=== PATIENT | male | born 1995 | race Caucasian/White ===

== ENCOUNTER 2017-03-12 07:25 | Outpatient (CLI) | payer OTHER ==
--- NOTE | 2017-03-12 10:01 | Ultrasound Report ---
SCROTAL ULTRASOUND: 03/12/2017 CLINICAL HISTORY: Right inguinal pain and bulge. COMPARISON: None. TECHNIQUE: Real-time sonographic vascular imaging was performed by the transport pilot through the scrotu m utilizing both color-flow and Doppler spectral analysis. Multiple renewals representative static images wer e saved for review. FINDINGS: RIGHT TESTICLE: 4.5 x 2.2 x 3.1 cm. Normal echotexture and blood flow. No hydrocele or varicocele. RIGHT EPIDIDYMIS: 1.2 x 1.1 x 1.3 cm. Normal echotexture and blood flow. LEFT TESTICLE: 4.4 x 1.9 x 2.9 cm. Normal echotexture and blood flow. No hydrocele or varicocele. LEFT EPIDIDYMIS: 1 x 0.9 x 1.1 cm. Normal echotexture and blood flow. HERNIA: None seen on either side. IMPRESSION: NEGATIVE SCROTAL ULTRASOUND. JOB #: [id number] EXT JOB #:[id number]
== END 2017-03-12 07:26 | disposition home or self-care (01) ==
LOC: DI 07:25
PROVIDERS: ATTEND Family Medicine
DX: R10.31 Right lower quadrant pain (principal)
CPT/HCPCS: 76870

== ENCOUNTER 2017-07-30 16:36 | Emergency (ER) | payer OTHER ==
[2017-07-30 16:48] VITALS: BP 138/69
--- NOTE | 2017-07-30 16:59 | ED Physician Documentation ---
PD HPI LOWER EXT INJURY - Stated complaint Stated Complaint: L KNEE PAIN - Chief complaint Chief Complaint: Ext Problem - History obtained from History obtained from: Patient - History of Present Illness PD HPI LOW EXT INJURY LOCATION: Left, Knee Type of injury: Blunt / blow Where injury occurred: Other (gym) Timing - onset: Today Timing - duration: Minutes Timing - details: Abrupt onset, Still present Improved by: Rest, Immobilization Worsened by: Moving, Palpating Associated symptoms: Swelling. No: Weakness, Numbness, Tingling Contributing factors: No: Anticoagulated Similar symptoms before: Has not had sx before Recently seen: Not recently seen - Additional information Additional information: 21-year-old male was playing basketball when he planted his left leg another player ran into it from the left side and hit his knee laterally with the knee of the other player. The patient's complaints of pain directly where the knee was hit and he feels that his knee is unstable when he goes to walk on it. Review of Systems Constitutional: denies: Fever Eyes: denies: Decreased vision Ears: denies: Ear pain Nose: denies: Congestion Throat: denies: Sore throat Cardiac: denies: Chest pain / pressure Respiratory: denies: Dyspnea, Cough GI: denies: Nausea, Vomiting Skin: denies: Rash Musculoskeletal: reports: Extremity pain, Joint pain, Joint swelling, Pain with weight bearing. denies: Neck pain, Back pain Neurologic: denies: Generalized weakness, Focal weakness, Numbness PD PAST MEDICAL HISTORY - Past Medical History Past Medical History: No - Past Surgical History Past Surgical History: No - Present Medications Home Medications: Ambulatory Orders Medication Instructions Recorded Confirmed No Known Home Medications [No 07/30/17 07/30/17 Known Home Medications] - Allergies Allergies/Adverse Reactions: Allergies Allergy/AdvReac Type Severity Reaction Status Date / Time No Known Drug Allergies Allergy Verified 07/30/17 16:47 - Social History Does the pt smoke?: No Smoking Status: Never smoker Does the pt drink ETOH?: No Does the pt have substance abuse?: No PD ED PE NORMAL - Vitals Vital signs reviewed: Yes (hypertensive ) - General General: Alert and oriented X 3, No acute distress, Well developed/nourished - HEENT HEENT: Atraumatic, PERRL, EOMI - Respiratory Respiratory: No respiratory distress - Derm Derm: Normal color, Warm and dry, No rash - Extremities Extremities: No deformity, Other (There is swelling consistent with a joint effusion. There is no tenderness to the patella but there is tenderness along the lateral joint line. The ligaments are stable to testing with the exception of the anterior drawer which has some movement when compared to the other side. Distal n/v is intact. ) - Neuro Neuro: No motor deficit, No sensory deficit Eye Opening: Spontaneous Motor: Obeys Commands Verbal: Oriented GCS Score: 15 - Psych Psych: Normal mood, Normal affect Results - Vitals Vitals: Oxygen O2 Source Room air - Rads (name of study) left knee Radiology: Prelim report reviewed (Impression: Normal knee radiography.), EMP read indepedently, See rad report Procedures - Splint (location) left knee Splint applied by: Tech Type of splint: Other (long leg knee immobilizer) Other: Patient tolerated well, No complications, Neurovascular intact, Good alignment PD MEDICAL DECISION MAKING - ED course Complexity details: reviewed results, re-evaluated patient, considered differential, d/w patient ED course: 21-year-old male playing basketball today has had a lateral contusion to the knee he does appear to have intact medial collateral ligament has some play to the anterior cruciate ligament and he does have a feeling of instability. He is placed into a knee immobilizer and he will need reexamination in the following week. He is particularly interested in the definitive prognosis of his injury as he is planning to join the [employer]. Departure - Departure Disposition: 01 Home, Self Care Clinical Impression: Left knee sprain Qualifiers: Encounter type: initial encounter Involved ligament of knee: anterior cruciate ligament Qualified Code(s): S83.512A - Sprain of anterior cruciate ligament of left knee, initial encounter Instructions: ED Sprain Knee Follow-Up: Bennie Chamberlain DO [Primary Care Provider] - [facility] [Provider Group] Discharge Date/Time: 07/30/17 17:39
--- NOTE | 2017-07-30 17:52 | XRAY Report ---
EXAM: LEFT KNEE RADIOGRAPHY EXAM DATE: 07/30/2017 05:30 PM. CLINICAL HISTORY: Lateral contusion pain. COMPARISON: None. TECHNIQUE: 4 views, including oblique views. FINDINGS: Bones: Normal. No fractures or bone lesions. Joints: Normal. No effusion. No subluxations. Soft Tissues: Unremarkable. IMPRESSION: Normal knee radiography. [facility] Referring Provider Line: [phone] SITE ID: [id number]
== END 2017-07-30 17:39 | disposition home or self-care (01) ==
LOC: ED 16:36
DX: S83.512A Sprain of anterior cruciate ligament of left knee, initial encounter (principal); W51.XXXA Accidental striking against or bumped into by another person, initial encounter; Y93.67 Activity, basketball
CPT/HCPCS: 29530; 99283

== ENCOUNTER 2017-08-11 16:47 | Outpatient (CLI) | payer OTHER ==
--- NOTE | 2017-08-12 17:02 | MRI Report ---
EXAM: LEFT KNEE MRI WITHOUT CONTRAST EXAM DATE: 08/11/2017 05:49 PM. CLINICAL HISTORY: Left knee injury, knee swelling. COMPARISON: None. TECHNIQUE: Multiplanar, multisequence T1-weighted and fluid-sensitive sequences of the knee without c ontrast. Other: None. FINDINGS: Bones: Osteochondral impaction injury seen at the lateral femoral sulcus of the lateral femoral condy le and also at the posterolateral and posteromedial tibial plateau. No fracture lines. Articular Cartilage: Osteochondral impaction injury lateral femoral condyle. No focal chondromalacia. Medial compartment and patellofemoral joint are spared. Medial Meniscus: The medial meniscus is intact. Lateral Meniscus: The lateral meniscus is intact. Cruciate Ligaments: Acute ACL tear. LCL is normal. Collateral Ligaments: The medial collateral and lateral collateral ligamentous structures are intact. Tendons: The quadriceps, patellar, semimembranosus, and popliteus tendons are unremarkable. Musculature: No edema or fatty atrophy. Other: Moderate-sized joint effusion. Popliteal cyst with signs of leak. No loose bodies. Retinacula are intact, prominent medial plica. Some subcutaneous edema is seen in anterior knee. There is also some edema in Hoffa's fat pad. IMPRESSION: 1. Acute ACL tear with typical "pivot-shift" injuries involving the posteromedial and posterolateral tibial plateau and the lateral terminal sulcus of the lateral femoral condyle. Osteochondral impactio n injury seen at the lateral femoral condyle. No loose bodies. 2. PCL, collaterals, and menisci appear normal. 3. Moderate-sized joint effusion. Popliteal cyst show signs of leak. Prominent plica is seen anterome dially. Subcutaneous edema seen in the anterior knee and there are also is some edema in Hoffa's fat pad. [facility] MUSCULOSKELET[facility]IOLOGY SECTION Referring Provider Line: [phone] SITE ID: [id number]
== END 2017-08-11 16:48 | disposition home or self-care (01) ==
LOC: DI 16:47
PROVIDERS: ATTEND Orthopaedic Surgery
DX: S83.512A Sprain of anterior cruciate ligament of left knee, initial encounter (principal); M25.462 Effusion, left knee; M66.0 Rupture of popliteal cyst

== ENCOUNTER 2021-06-08 08:00 | Outpatient (CLI) | payer BC, OTHER | END 2021-06-08 23:59 | LOC: LAB.N 08:00 | PROVIDERS: ATTEND Family Medicine | DX: J06.9 Acute upper respiratory infection, unspecified (principal); Z20.822 Contact with and (suspected) exposure to COVID-19 ==